=== PATIENT | female | born 1975 | race Hispanic/Latino ===

== ENCOUNTER 2016-05-30 14:02 | Emergency (ER) | payer MEDICAID, OTHER ==
[2016-05-30 14:08] VITALS: BP 100/67; PULSE 88; RESP 20; TEMP 98.1; O2SAT 98
[2016-05-30] MEDS ORDERED: Naproxen 550 mg Tab PO STA (14:24)
[2016-05-30] MEDS ORDERED: Bacitracin 500 Units/gm Oint Foilpak UD TOP ONE (14:24)
[2016-05-30] MEDS ORDERED: Naproxen 550 mg Tab PO ONE (14:29)
[2016-05-30] MEDS ORDERED: Bacitracin 500 Units/gm Oint Foilpak UD ONE (14:29)
--- NOTE | 2016-05-30 14:33 | C.PDOC ---
History Of Present Illness 40 year old female patient presents to the ED c/o left knee swelling that occurred yesterday. Patient reports that she was drinking yesterday then tripped and fell on her left knee. Patient denies any weakness or numbness, vomiting, nausea, fever, chills, or any other complaints. Time Seen by Provider: 05/30/16 14:04 Chief Complaint (Nursing): Lower Extremity Problem/Injury History Per: Patient History/Exam Limitations: no limitations Onset/Duration Of Symptoms: Days Current Symptoms Are (Timing): Still Present Severity: Mild - Knee Description Of Injury: Fell (Fell on left knee) Past Medical History Reviewed: Historical Data, Nursing Documentation, Vital Signs Vital Signs: Last Vital Signs Temp 98.1 F 05/30/16 14:07 Pulse 88 05/30/16 14:07 Resp 20 05/30/16 14:07 BP 100/67 05/30/16 14:07 Pulse Ox 98 05/30/16 14:40 - Medical History PMH: Seizures Family History: States: Unknown Family Hx - Social History Hx Alcohol Use: Yes Hx Substance Use: Yes (RECOVERED ADDICT) - Immunization History Hx Tetanus Toxoid Vaccination: No Hx Influenza Vaccination: No Hx Pneumococcal Vaccination: No Review Of Systems Except As Marked, All Systems Reviewed And Found Negative. Constitutional: Negative for: Fever, Chills Gastrointestinal: Negative for: Nausea, Vomiting Musculoskeletal: Positive for: Leg Pain (left knee pain) Neurological: Negative for: Weakness (Left extremity), Numbness (Left extremity) Physical Exam - Physical Exam Appears: Non-toxic, No Acute Distress Skin: Warm, Dry Head: Atraumatic, Normacephalic Eye(s): bilateral: Normal Inspection Oral Mucosa: Moist Neck: Normal ROM Extremity: Tenderness (Interior left knee ), Capillary Refill (< 2 sec), Swelling (Interior left knee ), Other (2 cm superficial laceration of the lateral left knee. No active bleeding) Pulses: Left Dorsalis Pedis: Normal, Right Dorsalis Pedis: Normal Neurological/Psych: Oriented x3, Normal Speech, Normal Cognition, Normal Motor, Normal Sensation Gait: Steady (Pain with walking) ED Course And Treatment O2 Sat by Pulse Oximetry: 98 (Room air) Pulse Ox Interpretation: Normal Medical Decision Making Medical Decision Making: Plans: -Anaprox -Bacitracin The wound was cleansed with saline and bacitracin applied. Patient reports tetanus is up to date. Patient is ambulatory in the ED with steady gait and mo wrap applied by wastewater technician. Disposition - Disposition Referrals: [facility] at [facility] [Outside] Disposition: HOME/ ROUTINE Disposition Time: 14:52 Condition: GOOD Additional Instructions: Follow up with the medical doctor within 1-2 days. Return if worsened, Prescriptions: Naproxen [Naprosyn] 500 mg PO BID #20 tab Instructions: Knee Sprain (ED) - Clinical Impression Clinical Impression: Knee contusion, Abrasion - Scribe Statement The provider has reviewed the documentation as recorded by the Scribe Lakesha tyler All medical record entries made by the Scribe were at my direction and personally dictated by me. I have reviewed the chart and agree that the record accurately reflects my personal performance of the history, physical exam, medical decision making, and the department course for this patient. I have also personally directed, reviewed, and agree with the discharge instructions and disposition.
== END 2016-05-30 15:08 | disposition home or self-care (01) ==
LOC: C.ER 14:02
DX: S80.212A Abrasion, left knee, initial encounter (principal); S80.02XA Contusion of left knee, initial encounter; W01.0XXA Fall on same level from slipping, tripping and stumbling without subsequent striking against object, initial encounter; Y92.9 Unspecified place or not applicable

== ENCOUNTER 2016-08-14 17:00 | Emergency (ER) | payer MEDICAID ==
--- NOTE | 2016-08-14 17:29 | C.PDOC ---
History Of Present Illness <Lynda Fuentes - Last Filed: 08/14/16 18:53> <Rafy Cisneros - Last Filed: 08/15/16 09:30> 41 y/o female presents to the ED s/p accidental overdose. 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 Pt has been abusing cocaine for the past several days. Denies suicide attempt or other drug use. States "I'm embarrassed" found by EMS unresponsive, gave narcan. Pt now asymptomatic. ACCID OVERDOSE SANITARY PLUMBER. PS RELAPSED AND DID 3 BAGS HEROIN [employer]ITARY PLUMBER. HAS BEEN ABUSING COCAINE X SEV DAYS. DENIES SUICIDE ATTEMPT, OTHER DRUG USE. "IM EMBARASSED" FOUND BY EMS UNRESPON, GAVE NARCAN NOW ASYMPT EXAM HEENT ABEBE YOUNGER PSYCH CALM COOPERATIVE NO SI/SA. NO S/S ACUTE INTOX OR WITHDRAWAL REMAINDER NEG (Lynda Fuentes) History Per: Patient History/Exam Limitations: no limitations Current Symptoms Are (Timing): Gone Modifying Factor(s): Narcotics Severity: Moderate Associated Symptoms: denies: Suicidal Thoughts, Suicidal Plan Involuntary Hold By: None Recent travel outside of the [place]: No <Lynda Fuentes - Last Filed: 08/14/16 18:53> <Rafy Cisneros - Last Filed: 08/15/16 09:30> Time Seen by Provider: 08/14/16 17:20 Chief Complaint (Nursing): Substance Abuse Past Medical History Reviewed: Historical Data, Nursing Documentation, Vital Signs - Medical History PMH: Seizures Family History: States: Unknown Family Hx - Social History Hx Alcohol Use: Yes Hx Substance Use: Yes (RECOVERED ADDICT) - Immunization History Hx Tetanus Toxoid Vaccination: No Hx Influenza Vaccination: No Hx Pneumococcal Vaccination: No <Lynda Fuentes - Last Filed: 08/14/16 18:53> Review Of Systems Except As Marked, All Systems Reviewed And Found Negative. Constitutional: Negative for: Fever Cardiovascular: Negative for: Chest Pain Respiratory: Negative for: Shortness of Breath Gastrointestinal: Negative for: Vomiting <Lynda Fuentes - Last Filed: 08/14/16 18:53> Physical Exam - Physical Exam Appears: Non-toxic, No Acute Distress Skin: Warm, Dry Head: Atraumatic, Normacephalic Eye(s): bilateral: PERRL, EOMI Oral Mucosa: Moist Chest: Symmetrical Cardiovascular: Rhythm Regular, No Murmur Respiratory: Normal Breath Sounds, No Rales, No Rhonchi, No Wheezing Gastrointestinal/Abdominal: Soft, No Tenderness Extremity: Bilateral: Atraumatic Neurological/Psych: Oriented x3, Normal Speech, Normal Cognition, Other (calm, cooperative, no SI/SA. No signs or symptoms of acute intoxication or withdrawal) <Lynda Fuentes - Last Filed: 08/14/16 18:53> ED Course And Treatment - Laboratory Results Result Diagrams: 08/14/16 17:46 08/14/16 17:46 O2 Sat by Pulse Oximetry: 98 (room air) Pulse Ox Interpretation: Normal <Lynda Fuentes - Last Filed: 08/14/16 18:53> - Laboratory Results Result Diagrams: 08/14/16 17:46 08/14/16 17:46 Progress Note: Patient refuses to stay for further observation, will sign out AMA. <LourdesMaicolRafy Tabitha - Last Filed: 08/15/16 09:30> Progress - Data Reviewed Data Reviewed: Lab, Old records <Lynda Fuentes - Last Filed: 08/14/16 18:53> <CisnerosMaicolRafy Tabitha - Last Filed: 08/15/16 09:30> - Re-Evaluation Re-evaluation Note: 08/14/16 19:00 NARD NO SIGNS NARC INTOX. VSS. S/O DR LOURDES WOMACK UDS, DISPO (Lynda Fuentes) Against Medical Advice <Lynda Fuentes - Last Filed: 08/14/16 18:53> <Rafy Cisneros - Last Filed: 08/15/16 09:30> - AMA Patient Left Against Medical Advice: The patient declines admission to the hospital and wishes to leave the Emergency Department. This action is against my medical advice. This decision was made with informed refusal. The patient was told that admission to the hospital is necessary. Explanation of the reasons why were discussed. The risks of leaving were explained to the patient and include, but are not limited to, worsening of known or currently unknown conditions, permanent disability and from undiagnosed or untreated conditions. The patient has the capacity to make this informed decision and understands my explanation of the current medical problem and risks of leaving. The patient voluntarily accepts these risks and signed an AMA form documenting our conversation. The patient was given the opportunity to ask questions and reconsider. The patient was encouraged to return to the Emergency Department at any time for further care. Medical Decision Making <Lynda Fuentes - Last Filed: 08/14/16 18:53> <Rafy Cisneros - Last Filed: 08/15/16 09:30> Medical Decision Making: Plan: * labs * CXR * IV fluids * UDS (Lynda Fuentes) Disposition <Lynda Fuentes - Last Filed: 08/14/16 18:53> Counseled Patient/Family Regarding: Diagnosis - Disposition Disposition Time: 19:30 - POA Present On Arrival: None <LourdesRafy Lu - Last Filed: 08/15/16 09:30> - Disposition Referrals: [facility] at [facility] [Outside] Disposition: AGAINST MEDICAL ADVICE Condition: STABLE Instructions: Polysubstance Abuse (ED) - Clinical Impression Clinical Impression: Substance abuse - Scribe Statement The provider has reviewed the documentation as recorded by the Scribe <Lynda Fuentes - Last Filed: 08/14/16 18:53> <Rafy Cisneros - Last Filed: 08/15/16 09:30> - Scribe Statement Tate Mae (AlfredoLynda) Provider Attestation: All medical record entries made by the Scribe were at my direction and personally dictated by me. I have reviewed the chart and agree that the record accurately reflects my personal performance of the history, physical exam, medical decision making, and the department course for this patient. I have also personally directed, reviewed, and agree with the discharge instructions and disposition. (Lynda Fuentes)
[2016-08-14 17:51] LABS: BASO # 0.1 K/uL (0.0-0.2); BASO % 0.6 % (0.0-2.0); EOS % 0.4 % (0.0-4.0); HEMATOCRIT 42.3 % (34.0-47.0); LYMPH # 1.5 K/uL (1.0-4.3); LYMPH % 16.4 % (20.0-40.0); MEAN CELL VOLUME 83.7 fL (81.0-99.0); MEAN CORPUSCULAR HEMOGLOBIN 28.5 pg (27.0-31.0); MEAN CORPUSCULAR HGB CONC 34.1 g/dL (33.0-37.0); MEAN PLATELET VOLUME 9.5 fL (7.2-11.7); MONO # 0.5 K/uL (0.0-0.8); MONO % 5.6 % (0.0-10.0); NRBC % 0.1 % (0.0-2.0); RED CELL DISTRIBUTION WIDTH 14.1 % (11.5-14.5)
[2016-08-14 18:00] LABS: CHLORIDE 107 mmol/L (98-107); SODIUM 140 mmol/L (132-148)
[2016-08-14 18:02] LABS: ALB/GLOB RATIO 1.2 (1.0-2.1); ALKALINE PHOSPHATASE 55 U/L (38-126); AST/SGOT 33 U/L (14-36); BILIRUBIN,TOTAL 0.7 mg/dL (0.2-1.3); CARBON DIOXIDE 20 mmol/L (22-30); GFR AFRICAN-AMERICAN > 60
[2016-08-14 18:03] LABS: ALCOHOL SERUM < 10 mg/dl (0-10); ALT/SGPT 27 U/L (9-52); BLOOD UREA NITROGEN 9 mg/dL (7-17); CALCIUM 9.1 mg/dl (8.6-10.4); GLUCOSE,RANDOM 160 mg/dL (65-105)
[2016-08-14] MEDS ORDERED: Potassium Chloride 20 mEq/15 ml LIQ UD PO STA (18:09)
[2016-08-14] MEDS ORDERED: Potassium Chloride 20 mEq/15 ml LIQ UD ONE (18:22)
[2016-08-14 19:31] VITALS: BP 157/73; PULSE 81; RESP 19; TEMP 97.5; O2SAT 100
--- NOTE | 2016-08-15 10:16 | RAD ---
PROCEDURE: CHEST RADIOGRAPH, 1 VIEW HISTORY: Overdosed COMPARISON: None available. FINDINGS: LUNGS: No focal infiltrate or effusion. Rounded nodular density projects over the left upper lung zone and may represent confluence of shadows with ribs and vessels. Clinical correlation. Comparison to prior study if available may be helpful. PLEURA: No pneumothorax or pleural fluid seen. CARDIOVASCULAR: Normal. OSSEOUS STRUCTURES: No significant abnormalities. VISUALIZED UPPER ABDOMEN: Normal. OTHER FINDINGS: None. IMPRESSION: No focal infiltrate or effusion. Rounded nodular density projects over the left upper lung zone and may represent confluence of shadows with ribs and vessels. Clinical correlation. Comparison to prior study if available may be helpful.
== END 2016-08-14 19:49 | disposition left against medical advice (07) ==
LOC: C.ER 17:00
DX: F11.10 Opioid abuse, uncomplicated (principal); F14.10 Cocaine abuse, uncomplicated